=== PATIENT | female | born 1980 | race Two or more races ===

== ENCOUNTER 2017-09-12 15:15 | Inpatient (IN) | END 2017-09-15 16:40 | disposition home or self-care (01) | DRG 766 ==

== ENCOUNTER 2018-09-24 16:39 | Emergency (ER) | payer OTHER ==
[~2018-09-24] VITALS: Ht 167.6 cm; Wt 75.3 kg
[2018-09-24 16:45] VITALS: Ht 167.6 cm; Wt 75.3 kg
[2018-09-24] MEDS ORDERED: IBUPROFEN 800 MG TAB PO ONE (20:30)
[2018-09-24] MEDS ORDERED: FER325 PO (21:20)
[2018-09-24] MEDS ORDERED: PREN1TAB13 PO (21:21)
[2018-09-24] MEDS ORDERED: BENZ-6 PO (21:25)
[2018-09-24] MEDS ORDERED: IBUP-1542 PO (21:25)
[2018-09-24] MEDS ORDERED: ACET325T33 PO (21:25)
--- NOTE | 2018-09-24 21:27 | ERD ---
ER Documentation Chief Complaint Chief Complaint Complains of cough, SOB and chest pain since yesterday HPI Patient is a 38-year-old female with no medical problems who presents with chest pain. She said that it is midsternal chest pain and she has numbness of the first and third fingers of her left hand and left foot. She said her bones hurt. The symptoms started yesterday and she tried 81 mg of aspirin yesterday. She has a cough as well. Upon review of old medical records the patient had one previous visit to the ER in 2018. She does have a primary doctor. ROS All systems reviewed and are negative except as per history of present illness. Medications Home Meds Active Scripts Ibuprofen* (Motrin*) 600 Mg Tab, 600 MG PO Q8, #30 TAB Prov:JOSE WHITNEY MD 09/24/18 Acetaminophen* (Tylenol*) 325 Mg Tablet, 2 TAB PO Q8 PRN for PAIN AND OR ELEVATED TEMP, #20 TAB Prov:JOSE WHITNEY MD 09/24/18 Benzonatate* (Tessalon Perle*) 100 Mg Capsule, 100 MG PO Q8H PRN for COUGH, #30 CAP Prov:JOSE WHITNEY MD 09/24/18 Reported Medications Pnv95/Ferrous Fumarate/FA ( Vitamins Tablet) 1 Each Tablet, 1 EACH PO DAILY, TAB 09/24/18 Ferrous Sulfate* (Ferrous Sulfate*) 325 Mg Tabec, 325 MG PO DAILY, TAB 09/24/18 Allergies Allergies: Coded Allergies: No Known Allergy (Unverified , 09/24/18) PMhx/Soc Medical and Surgical Hx: pt denies Medical Hx History of Surgery: Yes (CSECTION X 1) Anesthesia Reaction: No Hx Neurological Disorder: No Hx Respiratory Disorders: No Hx Cardiac Disorders: No Hx Psychiatric Problems: No Hx Miscellaneous Medical Probl: No Hx Alcohol Use: No Hx Substance Use: No Hx Tobacco Use: No Smoking Status: Never smoker FmHx Family History: No coronary disease Physical Exam Vitals Vital Signs Date Temp Pulse Resp B/P (MAP) Pulse Ox O2 O2 Flow FiO2 Time Delivery Rate 09/24/18 98.8 110 21 108/78 98 Room Air 21:45 (88) 09/24/18 103.0 20:40 09/24/18 103.0 113 22 123/83 97 Room Air 20:30 (96) 09/24/18 99.4 113 20 143/68 97 16:45 (93) Physical Exam Const: No acute distress Head: Atraumatic Eyes: Normal Conjunctiva ENT: Normal External Ears, Nose and Mouth. Neck: Full range of motion. No meningismus. Resp: Clear to auscultation bilaterally Cardio: Tachycardic rate without murmur Abd: Soft, non tender, non distended. Normal bowel sounds Skin: No petechiae or rashes Back: No midline or flank tenderness Ext: No cyanosis, or edema Neur: Awake and alert Psych: Normal Mood and Affect Results 24 hrs Laboratory Tests Test 09/24/18 20:58 09/24/18 21:00 Bedside Urine pH (LAB) 5.5 Bedside Urine Protein (LAB) 1+ Bedside Urine Glucose (UA) Negative Bedside Urine Ketones (LAB) 2+ Bedside Urine Blood 2+ Bedside Urine Nitrite (LAB) Negative Bedside Urine Leukocyte Esterase (L Negative POC Beta HCG, Qualitative NEGATIVE Current Medications Medications Dose Sig/Luz Start Time Status Last (Trade) Ordered Route PRN Stop Time Admin Dose Reason Admin Ibuprofen 800 mg ONCE ONCE 09/24/18 DC 09/24/18 (Motrin) PO 20:30 20:40 09/24/18 20:31 Benzonatate 200 mg ONCE ONCE 09/24/18 DC 09/24/18 (Tessalon) PO 22:00 21:50 09/24/18 22:01 Procedures/MDM EKG read by me: Rate/Rhythm: Sinus tachycardia at a rate of 107 Intervals: Normal Impression: Tachycardia without ischemia Chest x-ray negative per radiology. Urine dip negative for infection. Urine test negative. Patient is a 38-year-old female presents with chest pain and fever. She was given ibuprofen for pain and fever. I believe the patient likely has a viral illness at this time. Chest x-ray is negative. Urine dip is negative for infection. test is negative. The patient will be discharged but will need to follow-up closely with the primary doctor. The patient can return for any worsening symptoms. I doubt sepsis. Departure Diagnosis: Primary Impression: URI (upper respiratory infection) URI type: unspecified URI Qualified Codes: J06.9 - Acute upper respiratory infection, unspecified Additional Impression: Chest pain Chest pain type: unspecified Qualified Codes: R07.9 - Chest pain, unspecified Condition: Fair Patient Instructions: Chest Pain, Uncertain Cause, Uri, Viral, No Abx (Adult) Referrals: Your doctor Additional Instructions: Call your primary care doctor TOMORROW for an appointment during the next 1 WEEK.Tell the secretary receptionist that you were referred from this facility.See the doctor sooner or return here if your condition worsens before your appointment time. JOSE WHITNEY MD Sep 24, 2018 21:27
[2018-09-24 21:45] VITALS: BP 108/78; PULSE 110; RESP 21
[2018-09-24] MEDS ORDERED: BENZONATATE 100 MG CAP PO ONE (22:00)
== END 2018-09-24 22:00 | disposition home or self-care (01) ==
LOC: E/R 16:39
DX: J06.9 Acute upper respiratory infection, unspecified (principal); R07.9 Chest pain, unspecified
CPT/HCPCS: 71045; 81003; 81025; 93005; Z7502; Z7610